=== PATIENT | female | born 1935 | race Caucasian/White ===

== ENCOUNTER 2019-01-12 13:45 | Day surgery (SDC) | payer MEDICARE ==
[~2019-01-12] VITALS: Ht 152.4 cm; Wt 55.7 kg
[~2019-01-12 13:45] MED LIST: ACET1TAB15 PO; ASPI81TA26 PO; ATOR1TAB21 PO; BALANCED SALT IRRIGATION SOLUTION 500ML BAG (FOR OR EYE MACHINE) As Ordered ONE; CALC600T60 PO; CEFUROXIME 1MG/0.1ML INTRACAMERAL INJ As Ordered ONE; CHOL10007 PO; DUOVISC (0.50ML VISCOAT/0.55ML PROVISC) OPHTH KIT As Ordered ONE; GABA100C PO; LEVO75TA3 PO; LEVO75TA4 PO; LIDOCAINE 0.75%/EPINEPHRINE 0.025% IN BSS 1ML SYR INTRACAMERAL (OR ONLY) As Ordered ONE; LISI-1046 PO; METO1TAB7 PO; MULTCAP PO; OFLOXACIN 0.3 % (OCUFLOX) OPTH SOL 5ML OS ONE; PERCOCET PO; PHENYLEPHRINE 2.5% OPHTH SOL 2ML OS ONE; POVIDONE-IODINE 5% OPHTH PREP SOL 30ML As Ordered ONE; PROPARACAINE 0.5% OPHTH SOL 15ML OS ONE; TROPICAMIDE 1% OPHTH SOLN 2ML OS ONE; TYLE325T5 PO; XARE15TA PO; calcium with vit D OR; metoprolol OR
[2019-01-12] MEDS ORDERED: MIDAZOLAM INJ 2 MG/2 ML VIAL (J2250) As Ordered ONE (13:54)
[2019-01-12] MEDS ORDERED: fentaNYL 100 MCG/2 ML INJECTION (J3010) As Ordered ONE (13:54)
[2019-01-12] MEDS ORDERED: DUOVISC (0.50ML VISCOAT/0.55ML PROVISC) OPHTH KIT As Ordered ONE (14:43)
[2019-01-12 16:05] VITALS: BP 127/60
--- NOTE | 2019-01-13 07:47 | RO ---
DATE OF PROCEDURE: 01/12/2019 PREOPERATIVE DIAGNOSIS: 1. Visually significant nuclear sclerotic cataract left eye. POSTOPERATIVE DIAGNOSIS: 1. Visually significant nuclear sclerotic cataract left eye. PROCEDURE: 1. Cataract extraction with use of phacoemulsification and placement of intraocular lens, AU00T0, 29.5 D, left eye. SURGEON: Wander Vincent DO MEAT GRADER: None. ANESTHESIA: Local with monitored anesthesia care (MAC). COMPLICATIONS: None. POSTOPERATIVE CONDITION: Stable. INDICATIONS FOR SURGERY: 1. Blurred vision affecting patients activities of daily living. DESCRIPTION OF PROCEDURE: The patient was seen in the preoperative area and properly identified. The correct operative eye was identified and marked. The patient received topical anesthetic, antibiotics, and topical dilating drops. The patient was then transferred to the operating room. The correct side was re-identified, and a time-out was performed. The eye was prepped and draped in a sterile fashion. The eyelids were isolated with Tegaderm tape, and the lids were held open with an adjustable speculum. A 1.0 mm paracentesis incision was made. Intraocular preservative-free Shugarcaine was then injected into the anterior chamber. Viscoelastic was then injected into the anterior chamber through the paracentesis. Using a 2.4 mm sharp-tipped keratome, the anterior chamber was entered via a temporal clear cornea incision. A continuous curvilinear capsulorrhexis was created with Utrata forceps. Hydrodissection was performed with balanced salt solution (BSS) on a blunt cannula until the nucleus was able to rotate freely. The crystalline lens was phacoemulsified and aspirated. Irrigation/aspiration was used to remove the cortical material. Cohesive viscoelastic was placed into the capsular bag to deepen it. The implant was placed into the capsular bag and allowed to unfold. Placement was confirmed by visualizing the anterior capsulorrhexis. Irrigation/aspiration was used to remove the viscoelastic. The clear corneal incision was hydrated with BSS on a blunt cannula. The lens was well positioned. The incisions were then tested for leaks and found to be negative. The eye was then palpated for appropriate pressure and adjusted accordingly with BSS. The eyelid speculum was then carefully removed. A shield was placed over the eye. The patient tolerated the procedure well and was discharged to the recovery unit in a stable condition. SOL
== END 2019-01-12 16:17 | disposition home or self-care (01) ==
LOC: M SDC 13:45 → MERGE 17:15
PROVIDERS: ATTEND Ophthalmology
DX: H25.12 Age-related nuclear cataract, left eye (principal); I10 Essential (primary) hypertension; E78.5 Hyperlipidemia, unspecified; I73.9 Peripheral vascular disease, unspecified; Z79.899 Other long term (current) drug therapy; Z79.82 Long term (current) use of aspirin
CPT/HCPCS: 66984; J2250; J3010; V2632

== ENCOUNTER 2019-01-26 11:20 | Day surgery (SDC) | payer MEDICARE ==
[~2019-01-26] VITALS: Ht 152.4 cm; Wt 54.0 kg
[~2019-01-26 11:20] MED LIST changes: +ACETAMINOPHEN 325 MG TAB PO PRN; +OFLOXACIN 0.3 % (OCUFLOX) OPTH SOL 5ML OD ONE; -OFLOXACIN 0.3 % (OCUFLOX) OPTH SOL 5ML OS ONE; +PHENYLEPHRINE 2.5% OPHTH SOL 2ML OD ONE; -PHENYLEPHRINE 2.5% OPHTH SOL 2ML OS ONE; +PROPARACAINE 0.5% OPHTH SOL 15ML OD ONE; -PROPARACAINE 0.5% OPHTH SOL 15ML OS ONE; +TROPICAMIDE 1% OPHTH SOLN 2ML OD ONE; -TROPICAMIDE 1% OPHTH SOLN 2ML OS ONE
[2019-01-26] MEDS ORDERED: MIDAZOLAM INJ 2 MG/2 ML VIAL (J2250) As Ordered ONE (12:18)
[2019-01-26] MEDS ORDERED: fentaNYL 100 MCG/2 ML INJECTION (J3010) As Ordered ONE (12:18)
[2019-01-26 13:20] VITALS: BP 130/88
[2019-01-26] MEDS ORDERED: TRIMETHOBENZAMIDE 300 MG CAP PO PRN (13:30)
[2019-01-26] MEDS ORDERED: ONDANSETRON 4MG/2ML VIAL (J2405) IV PRN (13:30)
--- NOTE | 2019-01-27 08:22 | RO ---
DATE OF PROCEDURE: 01/26/2019 PREOPERATIVE DIAGNOSIS: 1. Visually significant nuclear sclerotic cataract right eye. POSTOPERATIVE DIAGNOSIS: 1. Visually significant nuclear sclerotic cataract right eye. PROCEDURE: 1. Cataract extraction with use of phacoemulsification and placement of intraocular lens, AU00T0, 28.0 D, right eye. SURGEON: Wander Vincent DO WARD SERVICE SUPERVISOR: None. ANESTHESIA: Local with monitored anesthesia care (MAC). COMPLICATIONS: None. POSTOPERATIVE CONDITION: Stable. INDICATIONS FOR SURGERY: 1. Blurred vision affecting patients activities of daily living. DESCRIPTION OF PROCEDURE: The patient was seen in the preoperative area and properly identified. The correct operative eye was identified and marked. The patient received topical anesthetic, antibiotics, and topical dilating drops. The patient was then transferred to the operating room. The correct side was re-identified, and a time-out was performed. The eye was prepped and draped in a sterile fashion. The eyelids were isolated with Tegaderm tape, and the lids were held open with an adjustable speculum. A 1.0 mm paracentesis incision was made. Intraocular preservative-free Shugarcaine was then injected into the anterior chamber. Viscoelastic was then injected into the anterior chamber through the paracentesis. Using a 2.4 mm sharp-tipped keratome, the anterior chamber was entered via a temporal clear cornea incision. A continuous curvilinear capsulorrhexis was created with Utrata forceps. Hydrodissection was performed with balanced salt solution (BSS) on a blunt cannula until the nucleus was able to rotate freely. The crystalline lens was phacoemulsified and aspirated. Irrigation/aspiration was used to remove the cortical material. Cohesive viscoelastic was placed into the capsular bag to deepen it. The implant was placed into the capsular bag and allowed to unfold. Placement was confirmed by visualizing the anterior capsulorrhexis. Irrigation/aspiration was used to remove the viscoelastic. The clear corneal incision was hydrated with BSS on a blunt cannula. The lens was well positioned. The incisions were then tested for leaks and found to be negative. The eye was then palpated for appropriate pressure and adjusted accordingly with BSS. The eyelid speculum was then carefully removed. A shield was placed over the eye. The patient tolerated the procedure well and was discharged to the recovery unit in a stable condition.
== END 2019-01-26 13:30 | disposition home or self-care (01) ==
LOC: M SDC 11:20 → EDUNIT# 13:45 → MERGE 13:45
PROVIDERS: ATTEND Ophthalmology
DX: H25.11 Age-related nuclear cataract, right eye (principal); I10 Essential (primary) hypertension; E78.5 Hyperlipidemia, unspecified; E03.9 Hypothyroidism, unspecified; Z79.82 Long term (current) use of aspirin; Z79.899 Other long term (current) drug therapy
CPT/HCPCS: 66984; J2250; J3010; V2632

== ENCOUNTER → 2019-05-30 | Outpatient (REF) | payer MEDICARE ==
[~2019-05-30] MED LIST changes: -ACETAMINOPHEN 325 MG TAB PO PRN; -BALANCED SALT IRRIGATION SOLUTION 500ML BAG (FOR OR EYE MACHINE) As Ordered ONE; -CEFUROXIME 1MG/0.1ML INTRACAMERAL INJ As Ordered ONE; -DUOVISC (0.50ML VISCOAT/0.55ML PROVISC) OPHTH KIT As Ordered ONE; -LIDOCAINE 0.75%/EPINEPHRINE 0.025% IN BSS 1ML SYR INTRACAMERAL (OR ONLY) As Ordered ONE; -OFLOXACIN 0.3 % (OCUFLOX) OPTH SOL 5ML OD ONE; -PHENYLEPHRINE 2.5% OPHTH SOL 2ML OD ONE; -POVIDONE-IODINE 5% OPHTH PREP SOL 30ML As Ordered ONE; -PROPARACAINE 0.5% OPHTH SOL 15ML OD ONE; -TROPICAMIDE 1% OPHTH SOLN 2ML OD ONE
[2019-05-30 14:10] LABS: FREE T4 1.23 NG/DL (0.76-1.46); RHEUMATOID FACTOR QUANT < 10.0 IU/ML (<15.0); TOTAL PROTEIN 7.4 GM/DL (6.4-8.2)
[2019-05-30 14:13] LABS: DRVV SCREEN 28.9 SEC
[2019-05-30 14:55] LABS: PTT LUPUS TYPE ANTICOAG SCREEN 0.7 (0-1.2)
[2019-05-30 15:25] LABS: HEMOGLOBIN A1c 6.2 %
[2019-05-31 11:00] LABS: VITAMIN B12 LEVEL 422 PG/ML
[2019-05-31 11:02] LABS: FOLATE > 24.0 NG/ML
[2019-06-01 12:42] LABS: ALBUMIN % 58.1 % (55.8-66.1); ALPHA-1-GLOBULIN % 4.4 % (2.9-4.9); ALPHA-1-GLOBULINS 0.33 GM/DL (0.17-0.41); ALPHA-2-GLOBULINS % 12.2 % (7.1-11.8); BETA-1-GLOBULINS 0.36 GM/DL (0.28-0.60); BETA-1-GLOBULINS % 4.8 % (4.7-7.2); BETA-2-GLOBULINS 0.38 GM/DL (0.19-0.55); BETA-2-GLOBULINS % 5.1 % (3.2-6.5); GAMMA GLOBULIN % 15.4 % (11.1-18.8); GAMMA GLOBULINS 1.14 GM/DL (0.65-1.58)
== END ==
LOC: M LABNEURO 10:47
PROVIDERS: ATTEND Psychiatry & Neurology Neurology
DX: G62.9 Polyneuropathy, unspecified (principal); Z79.82 Long term (current) use of aspirin; Z79.899 Other long term (current) drug therapy

== ENCOUNTER 2019-06-05 09:11 | Outpatient (CLI) | payer MEDICARE ==
[2019-06-05] VITALS (8 sets, daily range): BP systolic 129–144; BP diastolic 61–94
[~2019-06-05] VITALS: Ht 152.4 cm; Wt 54.0 kg
[2019-06-05] MEDS ORDERED: IMMUNE GLOBULIN 10% 20 GM in IV 1 EA IV ONE (09:30)
[2019-06-05] MEDS ORDERED: B-COTAB10 PO (10:30)
== END 2019-06-05 13:05 | disposition home or self-care (01) ==
LOC: M INFU 09:11
PROVIDERS: ATTEND Psychiatry & Neurology Neurology
DX: G61.0 Guillain-Barre syndrome (principal)
CPT/HCPCS: 96365; 96366; J1459

== ENCOUNTER 2019-06-06 09:22 | Outpatient (CLI) | payer MEDICARE ==
[~2019-06-06] VITALS: Ht 152.4 cm; Wt 54.0 kg
[~2019-06-06 09:22] MED LIST changes: +B-COTAB10 PO
[2019-06-06 09:35] VITALS: BP 134/74
[2019-06-06] MEDS ORDERED: IMMUNE GLOBULIN 10% 20 GM in IV 1 EA IV ONE (09:45)
[2019-06-06 11:00] VITALS: BP 137/69
[2019-06-06 11:30] VITALS: BP 152/69
[2019-06-06 12:00] VITALS: BP 142/82
[2019-06-06 13:30] VITALS: BP 134/64
== END 2019-06-06 13:30 | disposition home or self-care (01) ==
LOC: M INFU 09:22
PROVIDERS: ATTEND Psychiatry & Neurology Neurology
DX: G61.0 Guillain-Barre syndrome (principal)
CPT/HCPCS: 96365; 96366; J1459

== ENCOUNTER 2019-06-07 09:10 | Outpatient (CLI) | payer MEDICARE ==
[~2019-06-07] VITALS: Ht 152.4 cm; Wt 54.0 kg
[2019-06-07 09:15] VITALS: BP 125/74
[2019-06-07] MEDS ORDERED: IMMUNE GLOBULIN 10% 20 GM in IV 1 EA IV ONE (09:45)
[2019-06-07 10:17] VITALS: BP 127/62
[2019-06-07 10:49] VITALS: BP 127/68
[2019-06-07 11:19] VITALS: BP 138/66
[2019-06-07 12:45] VITALS: BP 126/61
== END 2019-06-07 12:30 | disposition home or self-care (01) ==
LOC: M INFU 09:10
PROVIDERS: ATTEND Psychiatry & Neurology Neurology
DX: G61.0 Guillain-Barre syndrome (principal)

== ENCOUNTER 2019-06-08 09:06 | Outpatient (CLI) | payer MEDICARE ==
[~2019-06-08] VITALS: Ht 152.4 cm; Wt 54.0 kg
[~2019-06-08 09:06] MED LIST changes: +IMMUNE GLOBULIN 10% 20 GM in IV 1 EA IV ONE
[2019-06-08 09:15] VITALS: BP 144/76
[2019-06-08 10:15] VITALS: BP 119/62
[2019-06-08 10:46] VITALS: BP 120/75
[2019-06-08 11:15] VITALS: BP 120/65
[2019-06-08 12:38] VITALS: BP 131/66
== END 2019-06-08 12:35 | disposition home or self-care (01) ==
LOC: M INFU 09:06
PROVIDERS: ATTEND Psychiatry & Neurology Neurology
DX: G61.0 Guillain-Barre syndrome (principal)
CPT/HCPCS: 96365; 96366; J1459

== ENCOUNTER 2019-06-09 09:04 | Outpatient (CLI) | payer MEDICARE ==
[~2019-06-09] VITALS: Ht 152.4 cm; Wt 54.0 kg
[~2019-06-09 09:04] MED LIST changes: -IMMUNE GLOBULIN 10% 20 GM in IV 1 EA IV ONE
[2019-06-09 09:15] VITALS: BP 162/89
[2019-06-09] MEDS ORDERED: IMMUNE GLOBULIN 10% 20 GM in IV 1 EA IV ONE (09:30)
[2019-06-09 10:15] VITALS: BP 129/77
[2019-06-09 10:45] VITALS: BP 128/78
[2019-06-09 11:15] VITALS: BP 126/97
[2019-06-09 11:45] VITALS: BP 135/78
[2019-06-09 12:50] VITALS: BP 144/75
== END 2019-06-09 13:00 | disposition home or self-care (01) ==
LOC: M INFU 09:04
PROVIDERS: ATTEND Psychiatry & Neurology Neurology
DX: G61.0 Guillain-Barre syndrome (principal)
CPT/HCPCS: 96365; 96366; J1459

== ENCOUNTER 2019-12-11 11:59 | Outpatient (CLI) | payer MEDICARE ==
[~2019-12-11] VITALS: Ht 152.4 cm; Wt 54.0 kg
[~2019-12-11 11:59] MED LIST changes: -LISI-1046 PO; +LISI2.5T2 PO
[2019-12-11 12:15] VITALS: BP 160/88
[2019-12-11] MEDS ORDERED: IMMUNE GLOBULIN 10% 20 GM in IV 1 EA IV ONE (12:15)
[2019-12-11 13:30] VITALS: BP 136/80
[2019-12-11 14:00] VITALS: BP 138/72
[2019-12-11 14:30] VITALS: BP 148/88
[2019-12-11 16:00] VITALS: BP 163/87
== END 2019-12-11 16:00 | disposition home or self-care (01) ==
LOC: M INFU 11:59
PROVIDERS: ATTEND Psychiatry & Neurology Neurology
DX: G61.0 Guillain-Barre syndrome (principal)
CPT/HCPCS: 96365; 96366; J1459

== ENCOUNTER 2019-12-12 09:24 | Outpatient (CLI) | payer MEDICARE ==
[~2019-12-12] VITALS: Ht 152.4 cm; Wt 54.0 kg
[2019-12-12] MEDS ORDERED: IMMUNE GLOBULIN 10% 20 GM in IV 1 EA IV ONE (09:45)
[2019-12-12 09:58] VITALS: BP 148/67
[2019-12-12 10:45] VITALS: BP 133/60
[2019-12-12 11:18] VITALS: BP 120/59
[2019-12-12 13:09] VITALS: BP 135/62
== END 2019-12-12 13:10 | disposition home or self-care (01) ==
LOC: M INFU 09:24
PROVIDERS: ATTEND Psychiatry & Neurology Neurology
DX: G61.0 Guillain-Barre syndrome (principal)
CPT/HCPCS: 96365; 96366; J1459

== ENCOUNTER 2019-12-13 11:45 | Outpatient (CLI) | payer MEDICARE ==
[~2019-12-13] VITALS: Ht 152.4 cm; Wt 54.0 kg
[2019-12-13 11:55] VITALS: BP 160/77
[2019-12-13] MEDS ORDERED: IMMUNE GLOBULIN 10% 20 GM in IV 1 EA IV ONE (12:00)
[2019-12-13 12:40] VITALS: BP 131/63
[2019-12-13 13:10] VITALS: BP 108/55
[2019-12-13 13:40] VITALS: BP 109/59
[2019-12-13 15:00] VITALS: BP 117/59
== END 2019-12-13 15:00 | disposition home or self-care (01) ==
LOC: M INFU 11:45
PROVIDERS: ATTEND Psychiatry & Neurology Neurology
DX: G61.0 Guillain-Barre syndrome (principal)
CPT/HCPCS: 96365; 96366; J1459

== ENCOUNTER 2019-12-14 10:27 | Outpatient (CLI) | payer MEDICARE ==
[~2019-12-14] VITALS: Ht 152.4 cm; Wt 54.0 kg
[2019-12-14 10:35] VITALS: BP 153/72
[2019-12-14] MEDS ORDERED: IMMUNE GLOBULIN 10% 20 GM in IV 1 EA IV ONE (10:45)
[2019-12-14 11:20] VITALS: BP 134/59
[2019-12-14 11:50] VITALS: BP 128/68
[2019-12-14 12:20] VITALS: BP 108/77
[2019-12-14 13:42] VITALS: BP 148/65
== END 2019-12-14 14:00 | disposition home or self-care (01) ==
LOC: M INFU 10:27
PROVIDERS: ATTEND Psychiatry & Neurology Neurology
DX: G61.0 Guillain-Barre syndrome (principal)
CPT/HCPCS: 96365; 96366; J1459

== ENCOUNTER 2019-12-15 10:46 | Outpatient (CLI) | payer MEDICARE ==
[~2019-12-15] VITALS: Ht 152.4 cm; Wt 54.0 kg
[2019-12-15 10:50] VITALS: BP 139/88
[2019-12-15] MEDS ORDERED: IMMUNE GLOBULIN 10% 20 GM in IV 1 EA IV ONE (11:00)
[2019-12-15 12:00] VITALS: BP 116/58
[2019-12-15 12:30] VITALS: BP 109/53
[2019-12-15 13:00] VITALS: BP 107/63
[2019-12-15 14:05] VITALS: BP 117/55
[2019-12-15 14:30] VITALS: BP 110/58
== END 2019-12-15 14:30 | disposition home or self-care (01) ==
LOC: M INFU 10:46
PROVIDERS: ATTEND Psychiatry & Neurology Neurology
DX: G61.0 Guillain-Barre syndrome (principal)
CPT/HCPCS: 96365; 96366; J1459